=== PATIENT | female | born 2000 | race Caucasian/White ===

== ENCOUNTER 2022-04-11 01:22 | Emergency (ER) | payer MEDICAID ==
[~2022-04-11] VITALS: Ht 180.3 cm; Wt 138.3 kg
[2022-04-11 01:52] LABS: BASOPHILS % (AUTO) 0.4 % (0.0-5.0); EOSINOPHILS % (AUTO) 1.5 % (0.0-8.0); HEMATOCRIT 41.8 % (36-48); LYMPHOCYTES % (AUTO) 38.8 % (21.0-51.0); MEAN CORPUSCULAR HEMOGLOBIN 28.2 pg (27.0-33.0); MEAN CORPUSCULAR VOLUME 82.9 fL (79-99); MONOCYTES % (AUTO) 5.1 % (3.0-13.0); NEUTROPHILS % (AUTO) 53.8 % (40.0-77.0); PLATELET COUNT (AUTO) 494 K/uL (130-400); RED BLOOD CELL COUNT(AUTO) 5.04 MIL/uL (4.00-5.50); RED CELL DISTRIBUTION WIDTH 13.4 % (11.0-15.5)
[2022-04-11 01:53] LABS: APPEARANCE,URINE CLEAR (CLEAR); BILIRUBIN,URINE NEGATIVE (NEGATIVE); COLOR,URINE YELLOW (YELLOW); GLUCOSE, URINE (UA) NEGATIVE (NEGATIVE); KETONES,URINE NEGATIVE (NEGATIVE); LEUKOCYTE ESTERASE ,URINE TRACE (NEGATIVE); NITRATE,URINE NEGATIVE (NEGATIVE); OCCULT BLOOD,URINE MODERATE (NEGATIVE); PROTEIN,URINE NEGATIVE (NEGATIVE); UROBILINOGEN,URINE 0.2 mg/dL (0.2-1.0)
[2022-04-11 01:55] LABS: HCG,QUALITATIVE URINE NEGATIVE (NEGATIVE)
[2022-04-11 01:59] LABS: BACTERIA,URINE Few /HPF (None Seen)
[2022-04-11 02:00] LABS: CREATININE 0.8 mg/dL (0.5-1.5); POTASSIUM 3.8 mmol/L (3.5-5.1)
[2022-04-11 02:05] LABS: ALBUMIN 4.2 g/dL (3.5-5.0)
[2022-04-11] MEDS ORDERED: KETOROLAC 30MG VIAL (30MG/ML) IVP ONE (03:30)
[2022-04-11] MEDS ORDERED: IBUP-2077 PO (06:42)
[2022-04-11] MEDS ORDERED: ONDA4TAB10 PO (06:42)
[2022-04-11 06:48] VITALS: BP 123/79
== END 2022-04-11 06:54 | disposition home or self-care (01) ==
LOC: EDH 01:22
DX: D72.829 Elevated white blood cell count, unspecified (principal); N93.9 Abnormal uterine and vaginal bleeding, unspecified; R10.31 Right lower quadrant pain; R10.32 Left lower quadrant pain; M79.602 Pain in left arm; J45.909 Unspecified asthma, uncomplicated; Z79.1 Long term (current) use of non-steroidal anti-inflammatories (NSAID); Z90.49 Acquired absence of other specified parts of digestive tract
CPT/HCPCS: 99285; 74176; 96374; 76856; 80053; 83690; 85025; 87210; 87797; 87486; 81001; 81025; 36415; J1885

== ENCOUNTER 2022-04-12 17:32 | Emergency (ER) | payer BC, MEDICAID ==
[~2022-04-12] VITALS: Ht 180.3 cm; Wt 145.1 kg
[~2022-04-12 17:32] MED LIST: IBUP-2077 PO; ONDA4TAB10 PO
[2022-04-12 18:10] LABS: BASOPHILS % (AUTO) 0.3 % (0.0-5.0); EOSINOPHILS % (AUTO) 1.5 % (0.0-8.0); HEMATOCRIT 40.8 % (36-48); LYMPHOCYTES % (AUTO) 35.4 % (21.0-51.0); MEAN CORPUSCULAR HEMOGLOBIN 28.3 pg (27.0-33.0); MEAN CORPUSCULAR HGB CONC 33.8 g/dL (32.0-36.0); MEAN CORPUSCULAR VOLUME 83.8 fL (79-99); MONOCYTES % (AUTO) 4.3 % (3.0-13.0); NEUTROPHILS % (AUTO) 58.2 % (40.0-77.0); PLATELET COUNT (AUTO) 417 K/uL (130-400); RED BLOOD CELL COUNT(AUTO) 4.87 MIL/uL (4.00-5.50); RED CELL DISTRIBUTION WIDTH 13.4 % (11.0-15.5); WHITE BLOOD COUNT (AUTO) 11.6 K/uL (4.8-10.8)
[2022-04-12 18:27] LABS: CREATININE 0.9 mg/dL (0.5-1.5); POTASSIUM 4.7 mmol/L (3.5-5.1)
[2022-04-12 18:32] LABS: TOTAL PROTEIN, SERUM 7.6 g/dL (6.0-8.3)
[2022-04-12 19:21] VITALS: BP 136/81
== END 2022-04-12 19:26 | disposition home or self-care (01) ==
LOC: EDH 17:32
DX: N93.8 Other specified abnormal uterine and vaginal bleeding (principal); J45.909 Unspecified asthma, uncomplicated
CPT/HCPCS: 36415; 80053; 84703; 85025